=== PATIENT | female | born 1960 | race Two or more races ===

== ENCOUNTER 2018-06-19 16:52 | Inpatient (IN) | payer MEDICAID, OTHER ==
[~2018-06-19] VITALS: Ht 152.4 cm; Wt 72.3 kg
[2018-06-19] MEDS ORDERED: ALBUTEROL/IPRATROPIUM 2.5MG/0.5MG, 3 ML NPPB SCH ×2 (17:00→21:00)
[2018-06-19] MEDS ORDERED: ALBUTEROL/IPRATROPIUM 2.5MG/0.5MG, 3 ML ONE (17:11)
[2018-06-19 17:38] LABS: BASOPHILS # (AUTO) 0.09 x10^3/uL (0-0.1); BASOPHILS % (AUTO) 1 % (0-1); EOSINOPHILS # (AUTO) 1.05 x10^3/uL (0-0.4); EOSINOPHILS % (AUTO) 12 % (1-7); LYMPHOCYTES # (AUTO) 3.02 x10^3/uL (1-3.4); LYMPHOCYTES % (AUTO) 34 % (22-44); MD NO; MEAN CORPUSCULAR HEMOGLOBIN 29.6 pg (27.0-34.8); MEAN CORPUSCULAR HGB CONC 33.2 g/dL (32.4-35.8); MEAN CORPUSCULAR VOLUME 89.1 fL (80-100); MEAN PLATELET VOLUME 8.1 fL (7.4-10.4); MONOCYTES # (AUTO) 0.48 x10^3/uL (0.2-0.8); MONOCYTES % (AUTO) 5 % (2-9); NEUTROPHILS # (AUTO) 4.36 x10^3/uL (1.8-6.8); NEUTROPHILS % (AUTO) 49 % (42-75); PLATELET COUNT 285 x10^3/uL (130-400); RED BLOOD COUNT 4.87 x10^6/uL (3.82-5.3); RED CELL DISTRIBUTION WIDTH 14.7 % (9.6-15.2)
[2018-06-19 18:04] LABS: ALANINE AMINOTRANSFERASE 29 U/L (12-78); ALBUMIN 4.1 g/dL (3.4-5.0); ANION GAP 5 mmol/L (5-15); CALCIUM 9.1 mg/dL (8.5-10.1); CHLORIDE 112 mmol/L (98-107); CREATININE 0.96 mg/dL (0.55-1.02)
[2018-06-19 18:07] LABS: ALKALINE PHOSPHATASE 91 U/L (45-117); BILIRUBIN,TOTAL 0.5 mg/dL (0.2-1.0); TOTAL PROTEIN 7.8 g/dL (6.4-8.2)
[2018-06-19] MEDS ORDERED: GABAPENTIN 300 MG CAPSULE PO PRN (20:00)
[2018-06-19] MEDS ORDERED: ONDANSETRON ODT 4 MG PO PRN (20:00)
[2018-06-19] MEDS ORDERED: ENALAPRILAT 1.25 MG/ML, 2ML IVPush PRN (20:00)
[2018-06-19] MEDS ORDERED: ONDANSETRON 2MG/ML, 2ML IVPush PRN (20:00)
[2018-06-19] MEDS ORDERED: hydrALAzine 20 MG/ML, 1ML IVPush PRN (20:00)
[2018-06-19] MEDS ORDERED: POLYETHYLENE GLYCOL 17 GM PACKET PO PRN (20:00)
[2018-06-19] MEDS ORDERED: CETIRIZINE 10 MG TABLET PO PRN (20:00)
[2018-06-19] MEDS ORDERED: DOCUSATE 100 MG CAPSULE PO PRN (20:00)
[2018-06-19] MEDS ORDERED: BISACODYL 10 MG SUPP PR PRN (20:00)
[2018-06-19] MEDS ORDERED: PROMETHAZINE 25 MG/ML, 1ML IM PRN (20:00)
[2018-06-19] MEDS ORDERED: morphine SULFATE 10 MG/ML, 1ML IVPush PRN (20:00)
[2018-06-19 20:20] VITALS: BP 132/82
[2018-06-19 20:28] LABS: FREE T4 (FREE THYROXINE) 0.68 ng/dL (0.76-1.46); THYROID STIMULATING HORMONE 6.1 mIU/L (0.358-3.740)
[2018-06-19 20:58] LABS: HEMOGLOBIN A1C 6.5 % (4.2-6.3)
[2018-06-19] MEDS ORDERED: ALBUTEROL/IPRATROPIUM 2.5MG/0.5MG, 3 ML NPPB PRN (21:00)
[2018-06-19] MEDS: SODIUM CHLORIDE 0.9% 1,000 ML IV SCH (21:31)
[2018-06-19] MEDS: FAMOTIDINE 20 MG/2 ML IVPush SCH (21:31)
[2018-06-19] MEDS: methylPREDNISolone SOD SUCC 125 MG/2 ML IVPush SCH (21:31)
[2018-06-19] MEDS ORDERED: ASPI81TA59 PO (22:05)
[2018-06-19] MEDS ORDERED: ALBU18HF PO (22:05)
[2018-06-19] MEDS ORDERED: LISI1TAB5 PO (22:05)
[2018-06-19] MEDS ORDERED: LEVO50TA5 PO (22:05)
[2018-06-19] MEDS ORDERED: LOVA20TA2 PO (22:05)
[2018-06-19] MEDS: ALBUTEROL/IPRATROPIUM 2.5MG/0.5MG, 3 ML NPPB SCH (22:07)
[2018-06-20] MEDS: ALBUTEROL/IPRATROPIUM 2.5MG/0.5MG, 3 ML NPPB SCH ×6 (01:37→23:06)
[2018-06-20 02:00] VITALS: BP 147/81
[2018-06-20] MEDS: methylPREDNISolone SOD SUCC 125 MG/2 ML IVPush SCH ×4 (03:48→22:43)
[2018-06-20 05:42] LABS: BASOPHILS % (AUTO) 0 % (0-1); EOSINOPHILS % (AUTO) 0 % (1-7); LYMPHOCYTES # (AUTO) 0.66 x10^3/uL (1-3.4); LYMPHOCYTES % (AUTO) 9 % (22-44); MD NO; MEAN CORPUSCULAR HEMOGLOBIN 30.1 pg (27.0-34.8); MEAN CORPUSCULAR HGB CONC 33.4 g/dL (32.4-35.8); MEAN CORPUSCULAR VOLUME 90.3 fL (80-100); MEAN PLATELET VOLUME 8.3 fL (7.4-10.4); MONOCYTES # (AUTO) 0.03 x10^3/uL (0.2-0.8); MONOCYTES % (AUTO) 0 % (2-9); NEUTROPHILS # (AUTO) 6.87 x10^3/uL (1.8-6.8); NEUTROPHILS % (AUTO) 91 % (42-75); PLATELET COUNT 268 x10^3/uL (130-400); RED BLOOD COUNT 4.77 x10^6/uL (3.82-5.3); RED CELL DISTRIBUTION WIDTH 14.8 % (9.6-15.2)
[2018-06-20 05:54] LABS: ALANINE AMINOTRANSFERASE 31 U/L (12-78); ALBUMIN 3.7 g/dL (3.4-5.0); ANION GAP 9 mmol/L (5-15); CALCIUM 9.3 mg/dL (8.5-10.1); CHLORIDE 110 mmol/L (98-107); CHOLESTEROL, TOTAL 179 mg/dL (140-239); CREATININE 0.98 mg/dL (0.55-1.02)
[2018-06-20 05:57] LABS: ALKALINE PHOSPHATASE 91 U/L (45-117); BILIRUBIN,TOTAL 0.4 mg/dL (0.2-1.0); CHOL/HDL RATIO 2.7; HDL CHOL % 37 % (28-40); HDL CHOLESTEROL (DIRECT) 66 mg/dL (40-60); LDL CHOLESTEROL,CALCULATED 100 mg/dL (54-169); LDL/HDL RATIO 1.5 (0.5-3.0); TOTAL PROTEIN 7.4 g/dL (6.4-8.2); TRIGLYCERIDES 66 mg/dL (50-200); VLDL CHOLESTEROL 13 mg/dL (0-25)
[2018-06-20 06:41] LABS: MICROSCOPIC INDICATED
[2018-06-20 06:53] LABS: CULTURE INDICATED? NO
[2018-06-20] MEDS: SODIUM CHLORIDE 0.9% 1,000 ML IV SCH (08:10)
[2018-06-20] MEDS: HEPARIN 5,000 UNITS/ML, 1ML SQ SCH ×3 (08:11→22:41)
[2018-06-20] MEDS: FAMOTIDINE 20 MG/2 ML IVPush SCH ×2 (08:12→22:41)
[2018-06-20] MEDS: LOSARTAN 25MG TABLET PO SCH (08:13)
[2018-06-20 08:37] VITALS: BP 138/78
[2018-06-20] MEDS ORDERED: FUROSEMIDE 40 MG/4 ML IV ONE (10:00)
[2018-06-20] MEDS: FLUTICASONE/VILANTEROL 200-25MCG/INH INH SCH (10:05)
[2018-06-20 12:57] VITALS: BP 145/92
[2018-06-20] MEDS: INSULIN LISPRO 100 UNITS/ML, PEN SQ-INSULIN SCH ×2 (17:30→23:39)
[2018-06-20 19:15] VITALS: BP 133/76
[2018-06-20] MEDS: LOVASTATIN 20 MG TABLET PO SCH (22:43)
[2018-06-20] MEDS: GUAIFENESIN ER 600 MG TABLET PO SCH (22:43)
[2018-06-21 02:37] VITALS: BP 133/80
[2018-06-21] MEDS: methylPREDNISolone SOD SUCC 125 MG/2 ML IVPush SCH ×4 (05:16→22:32)
[2018-06-21 05:41] LABS: BASOPHILS # (AUTO) 0.01 x10^3/uL (0-0.1); BASOPHILS % (AUTO) 0 % (0-1); EOSINOPHILS # (AUTO) 0.01 x10^3/uL (0-0.4); EOSINOPHILS % (AUTO) 0 % (1-7); LYMPHOCYTES # (AUTO) 1.08 x10^3/uL (1-3.4); LYMPHOCYTES % (AUTO) 8 % (22-44); MD NO; MEAN CORPUSCULAR HEMOGLOBIN 29.8 pg (27.0-34.8); MEAN CORPUSCULAR HGB CONC 33.2 g/dL (32.4-35.8); MEAN CORPUSCULAR VOLUME 89.5 fL (80-100); MEAN PLATELET VOLUME 8.8 fL (7.4-10.4); MONOCYTES # (AUTO) 0.18 x10^3/uL (0.2-0.8); MONOCYTES % (AUTO) 1 % (2-9); NEUTROPHILS % (AUTO) 90 % (42-75); PLATELET COUNT 297 x10^3/uL (130-400); RED BLOOD COUNT 4.66 x10^6/uL (3.82-5.3); RED CELL DISTRIBUTION WIDTH 14.7 % (9.6-15.2)
[2018-06-21 05:42] LABS: CHLORIDE 108 mmol/L (98-107)
[2018-06-21 05:43] LABS: ANION GAP 7 mmol/L (5-15); CALCIUM 9.3 mg/dL (8.5-10.1)
[2018-06-21 05:45] LABS: CREATININE 0.85 mg/dL (0.55-1.02)
[2018-06-21] MEDS: ALBUTEROL/IPRATROPIUM 2.5MG/0.5MG, 3 ML NPPB SCH ×5 (07:55→22:00)
[2018-06-21] MEDS: INSULIN LISPRO 100 UNITS/ML, PEN SQ-INSULIN SCH ×4 (08:33→20:11)
[2018-06-21] MEDS: HEPARIN 5,000 UNITS/ML, 1ML SQ SCH ×3 (08:33→23:50)
[2018-06-21] MEDS: FAMOTIDINE 20 MG/2 ML IVPush SCH ×2 (08:34→19:57)
[2018-06-21] MEDS: ASPIRIN 81 MG TABLET EC PO SCH (08:35)
[2018-06-21] MEDS: GUAIFENESIN ER 600 MG TABLET PO SCH ×2 (08:35→19:57)
[2018-06-21] MEDS: LOSARTAN 25MG TABLET PO SCH (08:35)
[2018-06-21] MEDS: HYDROCHLOROTHIAZIDE 12.5 MG CAPSULE PO SCH (08:35)
[2018-06-21] MEDS: LEVOTHYROXINE 50 MCG TABLET PO SCH (08:38)
[2018-06-21] MEDS: FLUTICASONE/VILANTEROL 200-25MCG/INH INH SCH (08:38)
[2018-06-21] MEDS: LISINOPRIL 20 MG TABLET PO SCH (08:38)
[2018-06-21 08:59] VITALS: BP 130/71
[2018-06-21 13:15] VITALS: BP 148/72
[2018-06-21 18:42] VITALS: BP 147/81
[2018-06-21] MEDS: LOVASTATIN 20 MG TABLET PO SCH (19:57)
[2018-06-22 01:09] VITALS: BP 131/78
[2018-06-22] MEDS: methylPREDNISolone SOD SUCC 125 MG/2 ML IVPush SCH ×4 (04:48→22:44)
[2018-06-22] MEDS: ALBUTEROL/IPRATROPIUM 2.5MG/0.5MG, 3 ML NPPB SCH ×5 (06:00→22:30)
[2018-06-22] MEDS ORDERED: GLUCAGON 1 MG IM PRN (08:00)
[2018-06-22] MEDS ORDERED: DEXTROSE 50%, 50ML SYRINGE IVPush PRN (08:00)
[2018-06-22] MEDS ORDERED: DEXTROSE 4 GM TAB.CHEW PO PRN (08:00)
[2018-06-22] MEDS: INSULIN LISPRO 100 UNITS/ML, PEN SQ-INSULIN SCH ×4 (08:19→19:43)
[2018-06-22] MEDS: FLUTICASONE/VILANTEROL 200-25MCG/INH INH SCH (08:19)
[2018-06-22] MEDS: LEVOTHYROXINE 50 MCG TABLET PO SCH (08:20)
[2018-06-22] MEDS: GUAIFENESIN ER 600 MG TABLET PO SCH ×2 (08:25→19:31)
[2018-06-22] MEDS: LISINOPRIL 20 MG TABLET PO SCH (08:25)
[2018-06-22] MEDS: LOSARTAN 25MG TABLET PO SCH (08:25)
[2018-06-22] MEDS: HYDROCHLOROTHIAZIDE 12.5 MG CAPSULE PO SCH (08:25)
[2018-06-22] MEDS: FAMOTIDINE 20 MG/2 ML IVPush SCH ×2 (08:26→19:31)
[2018-06-22] MEDS: HEPARIN 5,000 UNITS/ML, 1ML SQ SCH ×4 (08:26→22:45)
[2018-06-22] MEDS: ASPIRIN 81 MG TABLET EC PO SCH (08:26)
[2018-06-22] MEDS: SODIUM CHLORIDE FLUSH 10ML SYR IVF SCH ×2 (08:26→19:36)
[2018-06-22 08:30] VITALS: BP 137/76
[2018-06-22] MEDS: INSULIN GLARGINE 100 UNITS/ML, PEN SQ-INSULIN SCH (09:20)
[2018-06-22] MEDS ORDERED: CEFTRIAXONE 1,000 MG in SODIUM CHLORIDE 0.9% 50 ML IV SCH (10:00)
[2018-06-22] MEDS: DOXYCYCLINE 100MG TABLET PO SCH ×2 (12:09→19:32)
[2018-06-22 14:30] VITALS: BP 126/78
[2018-06-22] MEDS: LOVASTATIN 20 MG TABLET PO SCH (19:31)
[2018-06-22 22:04] VITALS: BP 136/74
[2018-06-23 03:50] VITALS: BP 132/86
[2018-06-23] MEDS: methylPREDNISolone SOD SUCC 125 MG/2 ML IVPush SCH ×3 (04:47→23:09)
[2018-06-23] MEDS: ALBUTEROL/IPRATROPIUM 2.5MG/0.5MG, 3 ML NPPB SCH ×6 (06:00→23:50)
[2018-06-23] MEDS: INSULIN GLARGINE 100 UNITS/ML, PEN SQ-INSULIN SCH (07:30)
[2018-06-23] MEDS: HEPARIN 5,000 UNITS/ML, 1ML SQ SCH ×2 (08:00→15:06)
[2018-06-23] MEDS: FLUTICASONE/VILANTEROL 200-25MCG/INH INH SCH (08:28)
[2018-06-23] MEDS: INSULIN LISPRO 100 UNITS/ML, PEN SQ-INSULIN SCH ×4 (08:28→21:43)
[2018-06-23 08:30] VITALS: BP 124/73
[2018-06-23] MEDS: HYDROCHLOROTHIAZIDE 12.5 MG CAPSULE PO SCH (08:35)
[2018-06-23] MEDS: GUAIFENESIN ER 600 MG TABLET PO SCH ×2 (08:35→21:43)
[2018-06-23] MEDS: LOSARTAN 25MG TABLET PO SCH (08:35)
[2018-06-23] MEDS: SODIUM CHLORIDE FLUSH 10ML SYR IVF SCH ×2 (08:36→21:42)
[2018-06-23] MEDS: LISINOPRIL 20 MG TABLET PO SCH (08:36)
[2018-06-23] MEDS: ASPIRIN 81 MG TABLET EC PO SCH (08:36)
[2018-06-23] MEDS: LEVOTHYROXINE 50 MCG TABLET PO SCH (08:37)
[2018-06-23] MEDS: FAMOTIDINE 20 MG/2 ML IVPush SCH ×2 (09:49→21:42)
[2018-06-23] MEDS: PIPERACILLIN/TAZO/PMX 3.375GM 50 ML IV SCH ×3 (09:49→21:43)
[2018-06-23 14:30] VITALS: BP 120/78
[2018-06-23 19:59] VITALS: BP 152/79
[2018-06-23] MEDS: LOVASTATIN 20 MG TABLET PO SCH (21:42)
[2018-06-24 00:21] VITALS: BP 127/75
[2018-06-24] MEDS: PIPERACILLIN/TAZO/PMX 3.375GM 50 ML IV SCH ×4 (03:44→23:31)
[2018-06-24] MEDS: ALBUTEROL/IPRATROPIUM 2.5MG/0.5MG, 3 ML NPPB SCH ×3 (07:55→15:00)
[2018-06-24] MEDS: HEPARIN 5,000 UNITS/ML, 1ML SQ SCH ×3 (08:00→17:09)
[2018-06-24 08:18] VITALS: BP 151/89
[2018-06-24] MEDS: FLUTICASONE/VILANTEROL 200-25MCG/INH INH SCH (09:00)
[2018-06-24] MEDS: SODIUM CHLORIDE FLUSH 10ML SYR IVF SCH ×2 (09:00→21:47)
[2018-06-24] MEDS: INSULIN GLARGINE 100 UNITS/ML, PEN SQ-INSULIN SCH ×2 (09:34→21:45)
[2018-06-24] MEDS: INSULIN LISPRO 100 UNITS/ML, PEN SQ-INSULIN SCH ×4 (09:35→21:46)
[2018-06-24] MEDS: ASPIRIN 81 MG TABLET EC PO SCH (09:35)
[2018-06-24] MEDS: HYDROCHLOROTHIAZIDE 12.5 MG CAPSULE PO SCH (09:36)
[2018-06-24] MEDS: GUAIFENESIN ER 600 MG TABLET PO SCH ×2 (09:36→21:44)
[2018-06-24] MEDS: LISINOPRIL 20 MG TABLET PO SCH (09:36)
[2018-06-24] MEDS: LOSARTAN 25MG TABLET PO SCH (09:36)
[2018-06-24] MEDS: LEVOTHYROXINE 50 MCG TABLET PO SCH (09:36)
[2018-06-24] MEDS: methylPREDNISolone SOD SUCC 125 MG/2 ML IVPush SCH ×2 (11:53→23:32)
[2018-06-24] MEDS: FAMOTIDINE 20 MG/2 ML IVPush SCH ×2 (11:53→21:44)
[2018-06-24 14:30] VITALS: BP 118/72
[2018-06-24 19:22] VITALS: BP 123/81
[2018-06-24] MEDS: LOVASTATIN 20 MG TABLET PO SCH (21:44)
[2018-06-25 00:29] VITALS: BP 133/79
[2018-06-25] MEDS: HEPARIN 5,000 UNITS/ML, 1ML SQ SCH ×4 (00:29→21:56)
[2018-06-25] MEDS: PIPERACILLIN/TAZO/PMX 3.375GM 50 ML IV SCH ×4 (06:23→23:41)
[2018-06-25 07:00] VITALS: BP 142/87
[2018-06-25] MEDS: LEVOTHYROXINE 50 MCG TABLET PO SCH (07:29)
[2018-06-25] MEDS: LOSARTAN 25MG TABLET PO SCH (07:29)
[2018-06-25] MEDS: FLUTICASONE/VILANTEROL 200-25MCG/INH INH SCH (07:29)
[2018-06-25] MEDS: SODIUM CHLORIDE FLUSH 10ML SYR IVF SCH ×2 (07:30→21:55)
[2018-06-25] MEDS: LISINOPRIL 20 MG TABLET PO SCH (07:30)
[2018-06-25] MEDS: FAMOTIDINE 20 MG/2 ML IVPush SCH ×2 (07:30→21:55)
[2018-06-25] MEDS: GUAIFENESIN ER 600 MG TABLET PO SCH ×2 (07:30→21:56)
[2018-06-25] MEDS: HYDROCHLOROTHIAZIDE 12.5 MG CAPSULE PO SCH (07:30)
[2018-06-25] MEDS: ASPIRIN 81 MG TABLET EC PO SCH (07:30)
[2018-06-25] MEDS: INSULIN GLARGINE 100 UNITS/ML, PEN SQ-INSULIN SCH ×2 (07:43→22:05)
[2018-06-25] MEDS: ALBUTEROL/IPRATROPIUM 2.5MG/0.5MG, 3 ML NPPB SCH ×4 (07:45→20:50)
[2018-06-25] MEDS: INSULIN LISPRO 100 UNITS/ML, PEN SQ-INSULIN SCH ×3 (11:30→22:05)
[2018-06-25 12:39] VITALS: BP 113/70
[2018-06-25 18:30] VITALS: BP 116/70
[2018-06-25] MEDS: LOVASTATIN 20 MG TABLET PO SCH (21:56)
[2018-06-26 01:17] VITALS: BP 121/73
[2018-06-26] MEDS: PIPERACILLIN/TAZO/PMX 3.375GM 50 ML IV SCH ×3 (05:47→20:17)
[2018-06-26 06:48] VITALS: BP 131/82
[2018-06-26] MEDS: ALBUTEROL/IPRATROPIUM 2.5MG/0.5MG, 3 ML NPPB SCH ×4 (07:00→19:25)
[2018-06-26] MEDS: INSULIN LISPRO 100 UNITS/ML, PEN SQ-INSULIN SCH ×4 (07:00→20:30)
[2018-06-26] MEDS: SODIUM CHLORIDE FLUSH 10ML SYR IVF SCH ×2 (09:00→20:17)
[2018-06-26] MEDS: LEVOTHYROXINE 50 MCG TABLET PO SCH (09:22)
[2018-06-26] MEDS: GUAIFENESIN ER 600 MG TABLET PO SCH ×2 (09:23→20:17)
[2018-06-26] MEDS: HYDROCHLOROTHIAZIDE 12.5 MG CAPSULE PO SCH (09:23)
[2018-06-26] MEDS: ASPIRIN 81 MG TABLET EC PO SCH (09:23)
[2018-06-26] MEDS: LISINOPRIL 20 MG TABLET PO SCH (09:23)
[2018-06-26] MEDS: LOSARTAN 25MG TABLET PO SCH (09:23)
[2018-06-26] MEDS: FAMOTIDINE 20 MG/2 ML IVPush SCH (09:23)
[2018-06-26] MEDS: HEPARIN 5,000 UNITS/ML, 1ML SQ SCH ×3 (09:24→23:21)
[2018-06-26] MEDS: INSULIN GLARGINE 100 UNITS/ML, PEN SQ-INSULIN SCH ×2 (09:25→20:30)
[2018-06-26] MEDS: FLUTICASONE/VILANTEROL 200-25MCG/INH INH SCH (09:25)
[2018-06-26 10:36] LABS: BASOPHILS # (AUTO) 0.04 x10^3/uL (0-0.1); BASOPHILS % (AUTO) 0 % (0-1); EOSINOPHILS # (AUTO) 0.25 x10^3/uL (0-0.4); EOSINOPHILS % (AUTO) 2 % (1-7); LYMPHOCYTES # (AUTO) 3.96 x10^3/uL (1-3.4); LYMPHOCYTES % (AUTO) 32 % (22-44); MD NO; MEAN CORPUSCULAR HEMOGLOBIN 30.2 pg (27.0-34.8); MEAN CORPUSCULAR HGB CONC 33.4 g/dL (32.4-35.8); MEAN CORPUSCULAR VOLUME 90.4 fL (80-100); MEAN PLATELET VOLUME 8.5 fL (7.4-10.4); MONOCYTES # (AUTO) 0.75 x10^3/uL (0.2-0.8); MONOCYTES % (AUTO) 6 % (2-9); NEUTROPHILS # (AUTO) 7.23 x10^3/uL (1.8-6.8); NEUTROPHILS % (AUTO) 59 % (42-75); PLATELET COUNT 256 x10^3/uL (130-400); RED BLOOD COUNT 4.88 x10^6/uL (3.82-5.3); RED CELL DISTRIBUTION WIDTH 14.4 % (9.6-15.2)
[2018-06-26 10:45] LABS: ANION GAP 8 mmol/L (5-15); CALCIUM 8.5 mg/dL (8.5-10.1); CHLORIDE 103 mmol/L (98-107); CREATININE 0.97 mg/dL (0.55-1.02)
[2018-06-26 14:46] VITALS: BP 118/76
[2018-06-26 18:35] VITALS: BP 107/65
[2018-06-26] MEDS: FAMOTIDINE 20 MG TABLET PO SCH (20:17)
[2018-06-26] MEDS: LOVASTATIN 20 MG TABLET PO SCH (20:17)
[2018-06-27 01:32] VITALS: BP 104/69
[2018-06-27] MEDS: PIPERACILLIN/TAZO/PMX 3.375GM 50 ML IV SCH ×4 (01:46→21:29)
[2018-06-27] MEDS: INSULIN LISPRO 100 UNITS/ML, PEN SQ-INSULIN SCH ×4 (07:00→20:27)
[2018-06-27 07:30] VITALS: BP 113/76
[2018-06-27] MEDS: ALBUTEROL/IPRATROPIUM 2.5MG/0.5MG, 3 ML NPPB SCH (08:40)
[2018-06-27] MEDS: SODIUM CHLORIDE FLUSH 10ML SYR IVF SCH ×2 (09:00→20:23)
[2018-06-27] MEDS: GUAIFENESIN ER 600 MG TABLET PO SCH ×2 (09:10→20:22)
[2018-06-27] MEDS: HEPARIN 5,000 UNITS/ML, 1ML SQ SCH ×3 (09:10→23:12)
[2018-06-27] MEDS: LOSARTAN 25MG TABLET PO SCH (09:10)
[2018-06-27] MEDS: LEVOTHYROXINE 50 MCG TABLET PO SCH (09:11)
[2018-06-27] MEDS: HYDROCHLOROTHIAZIDE 12.5 MG CAPSULE PO SCH (09:11)
[2018-06-27] MEDS: ASPIRIN 81 MG TABLET EC PO SCH (09:11)
[2018-06-27] MEDS: FAMOTIDINE 20 MG TABLET PO SCH ×2 (09:11→20:22)
[2018-06-27] MEDS: LISINOPRIL 20 MG TABLET PO SCH (09:11)
[2018-06-27] MEDS: INSULIN GLARGINE 100 UNITS/ML, PEN SQ-INSULIN SCH ×2 (09:13→20:31)
[2018-06-27] MEDS: FLUTICASONE/VILANTEROL 200-25MCG/INH INH SCH (09:13)
[2018-06-27 13:48] VITALS: BP 101/64
[2018-06-27 19:00] VITALS: BP 99/63
[2018-06-27] MEDS: LOVASTATIN 20 MG TABLET PO SCH (20:22)
[2018-06-28 01:05] VITALS: BP 105/58
[2018-06-28] MEDS: PIPERACILLIN/TAZO/PMX 3.375GM 50 ML IV SCH (03:34)
[2018-06-28] MEDS: INSULIN LISPRO 100 UNITS/ML, PEN SQ-INSULIN SCH ×2 (07:00→11:00)
[2018-06-28 08:02] VITALS: BP 106/70
[2018-06-28] MEDS ORDERED: LEVOTHYROXINE 75 MCG TABLET PO SCH (09:00)
[2018-06-28] MEDS ORDERED: LEVOFLOXACIN 750 MG TABLET PO SCH (09:00)
[2018-06-28] MEDS ORDERED: INSULIN GLARGINE 100 UNITS/ML, PEN SQ-INSULIN SCH (09:00)
[2018-06-28] MEDS ORDERED: METF500T PO (09:21)
[2018-06-28] MEDS ORDERED: FLUT1BLS INH (09:21)
[2018-06-28] MEDS ORDERED: LEVO75TA PO (09:21)
[2018-06-28] MEDS ORDERED: LEVO750T26 PO (09:21)
[2018-06-28] MEDS ORDERED: GUAI600T31 PO (09:21)
[2018-06-28] MEDS ORDERED: PRED20TA PO (09:21)
[2018-06-28] MEDS ORDERED: LOSA25TA2 PO (09:21)
[2018-06-28] MEDS ORDERED: MONT10TA6 PO (09:21)
[2018-06-28] MEDS: HEPARIN 5,000 UNITS/ML, 1ML SQ SCH (10:05)
[2018-06-28] MEDS: LOSARTAN 25MG TABLET PO SCH (10:06)
[2018-06-28] MEDS: SODIUM CHLORIDE FLUSH 10ML SYR IVF SCH (10:06)
[2018-06-28] MEDS: FLUTICASONE/VILANTEROL 200-25MCG/INH INH SCH (10:06)
[2018-06-28 10:09] VITALS: BP 100/70
[2018-06-28] MEDS: ASPIRIN 81 MG TABLET EC PO SCH (10:09)
[2018-06-28] MEDS: GUAIFENESIN ER 600 MG TABLET PO SCH (10:10)
[2018-06-28] MEDS: HYDROCHLOROTHIAZIDE 12.5 MG CAPSULE PO SCH (10:10)
[2018-06-28] MEDS: FAMOTIDINE 20 MG TABLET PO SCH (10:11)
[2018-06-28] MEDS: LISINOPRIL 20 MG TABLET PO SCH (10:11)
== END 2018-06-28 13:10 | disposition home or self-care (01) | DRG 193 ==
LOC: ED 19:15 → EDIP 19:31 → 3NE 20:00 → DCLOUNGE 06-28 12:37
PROVIDERS: ADMIT Internal Medicine; ATTEND Internal Medicine
DX: J18.9 Pneumonia, unspecified organism (principal); J96.01 Acute respiratory failure with hypoxia; J45.901 Unspecified asthma with (acute) exacerbation; E03.9 Hypothyroidism, unspecified; E11.9 Type 2 diabetes mellitus without complications; E66.9 Obesity, unspecified; E78.5 Hyperlipidemia, unspecified; I10 Essential (primary) hypertension; Z79.4 Long term (current) use of insulin; Z87.891 Personal history of nicotine dependence; Z68.31 Body mass index [BMI] 31.0-31.9, adult; Z90.49 Acquired absence of other specified parts of digestive tract
CPT/HCPCS: 36415; 71045; 80048; 80053; 80061; 81001; 82962; 83036; 83735; 84439; 84443; 85025; 87070; 87077; 87186; 87205; 93005; 93306; 94640; 99291; G0378; J0696; J1644; J1940; J2543; J7620; J1815; J2930; J7030; J7512; S0028